=== PATIENT | male | born 1990 | race Caucasian/White ===

== ENCOUNTER 2018-04-29 18:26 | Emergency (ER) | payer OTHER ==
[~2018-04-29] VITALS: Ht 177.8 cm; Wt 105.0 kg
[2018-04-29 18:53] LABS: ABSOLUTE BASOPHILS 0.1 thou/uL (0.0-0.2); ABSOLUTE EOSINOPHILS 0.3 thou/uL (0.0-0.7); ABSOLUTE MONOCYTES 0.6 thou/uL (0.0-1.2); ABSOLUTE NEUTROPHILS 8.1 thou/uL (1.6-8.1); EOSINOPHILS 2.8 %; HEMATOCRIT 40.3 % (42.0-52.0); HEMOGLOBIN 13.6 gm/dL (14.0-18.0); LYMPHOCYTES 18.1 %; MCH 28.8 pg (26.0-34.0); MCHC 33.8 g/dL (28.0-37.0); MCV 85.3 fL (80.0-100.0); MONOCYTES 5.5 %; MPV 8.4 fl. (7.2-11.1); NUCLEATED RBCS 0 /100WBC; PLATELET COUNT* 222 thou/uL (150-400); POLYS 72.6 %; RBC 4.73 mil/uL (4.50-6.00); RDW-CV 13.4 % (10.5-14.5); WBC 11.2 thou/uL (4.0-11.0)
[2018-04-29 19:03] LABS: ANION GAP 8 mmol/L (7-16); BUN 11 mg/dL (7-18); CALCIUM 8.4 mg/dL (8.5-10.1); CHLORIDE 105 mmol/L (98-107); CO2 26 mmol/L (21-32); GLUCOSE 93 mg/dL (70-99); POTASSIUM 3.6 mmol/L (3.5-5.1); SODIUM 139 mmol/L (136-145)
[2018-04-29 19:09] LABS: ALBUMIN 3.9 g/dL (3.4-5.0); ALKALINE PHOSPHATASE 54 U/L (46-116); LIPASE 103 U/L (73-393); SGOT 26 U/L (15-37); SGPT 44 U/L (30-65); TOTAL BILIRUBIN 0.4 mg/dL (<0.1-1.0); TOTAL PROTEIN 7.4 g/dL (6.4-8.2); TROPONIN-I LEVEL <0.06 ng/mL (<0.06)
[2018-04-29 19:18] LABS: URINE BILIRUBIN NEGATIVE (Negative); URINE BLOOD NEGATIVE (Negative); URINE CLARITY CLEAR; URINE COLOR YELLOW; URINE GLUCOSE-RANDOM NEGATIVE (Negative); URINE KETONES NEGATIVE (Negative); URINE LEUKOCYTES NEGATIVE (Negative); URINE NITRITE NEGATIVE (Negative); URINE PROTEIN NEGATIVE (Negative); URINE SPECIFIC GRAVITY <= 1.005 (1.005-1.030); URINE UROBILINOGEN 0.2 E.U./dl (0.2-1.0)
[2018-04-29 20:26] VITALS: BP 125/65
--- NOTE | 2018-04-30 17:30 | EKG ---
[place] [address] ELECTROCARDIOGRAM REPORT Name: BRIELLE BREAUX [id number] Admission: 04/29/18 Attend Phys: Discharge: 04/29/18 Date of : 88 Report #: [id number] THIS REPORT FOR: //name// [facility] ED Test Date: 2018-04-29 Test Time: 18:47:53 Pat Name: BRIELLE BREAUX Department: Room: Gender: M C D Area Supervisor: : 1990 Requested By: Ainsley Murry Order Number: [id number] MD: Elias An Measurements Intervals [place] Rate: 107 P: 30 TX: 144 QRS: 20 QRSD: 92 T: -2 QT: 310 QTc: 414 Interpretive Statements Sinus tachycardia No previous ECG available for comparison Electronically Signed On 04-30-2018 17:30:03 CDT by Elias An [email or web address] <ELECTRONICALLY SIGNED> By: Elias An MD, [facility] 04/30/18 1730 1847 1847 Elias An MD, FACC /EPI
== END 2018-04-29 20:27 | disposition home or self-care (01) ==
LOC: M.ERS 18:26
PROVIDERS: Nurse Practitioner Family
DX: T67.5XXA Heat exhaustion, unspecified, initial encounter (principal); Z88.2 Allergy status to sulfonamides; W39.XXXA Discharge of firework, initial encounter; Y93.89 Activity, other specified; Y92.89 Other specified places as the place of occurrence of the external cause; Y99.8 Other external cause status

== ENCOUNTER → 2021-11-02 | Outpatient (CLI) | payer OTHER | LOC: M.LAB 10:52 | PROVIDERS: ATTEND Internal Medicine Gastroenterology | DX: Z20.822 Contact with and (suspected) exposure to COVID-19 (principal) ==